=== PATIENT | male | born 1950 | race Caucasian/White ===

== ENCOUNTER 2017-01-22 15:05 | Emergency (ER) | payer OTHER | END 2017-01-22 16:35 | disposition left against medical advice (07) | LOC: ED 15:05 | DX: Z53.9 Procedure and treatment not carried out, unspecified reason (principal) ==

== ENCOUNTER 2017-08-11 13:58 | Emergency (ER) | payer OTHER, MEDICARE ==
[2017-08-11] MEDS ORDERED: Sodium Chloride 0.9% 1000 ML 1,000 ML IV STA (14:08)
--- NOTE | 2017-08-11 14:13 | ERPHSYRPT ---
- History of Present Illness Time Seen by Provider: 08/11/17 14:08 Source: patient, EMS Exam Limitations: no limitations Patient Subjective Stated Complaint: Ems states pt was at [place] [facility] and has had sob with productive cough for the past 3 days. pt states he has been taking antibiotics for pnuemonia. Triage Nursing Assessment: pt dusky, olga, dry. accu check per ems 345. lung sounds wheezes with rhonchi throughout. diminished lung sounds in left upper lobe. pt alert and oriented x3. Physician History: The patient is a 67-year-old male brought in by ambulance from a [place] [facility] that he was visiting for possible admission. He has a recent diagnosis of lung cancer in the left lung and pneumonia. He thinks he was recently on antibiotics. He has difficulty caring for himself. His primary care he is at the [facility]. Pt was seen at [facility] in [place] 2 days ago and had 2.5 L of fluids drained from left lung and given diagnosis of lung cancer. The EMS crew gave him Combivent and albuterol 2. The patient was also given Solu-Medrol 125 mg by IV. PMH of COPD, PTSD, DM, anxiety. Timing/Duration: day(s) (3) Activities at Onset: none Severity of Dyspnea-Max: severe Severity of Dyspnea-Current: severe Possible Cause: chronic episodes Modifying Factors: Improves With: albuterol nebulizer, exertion Associated Symptoms: denies symptoms Allergies/Adverse Reactions: amoxicillin [Amoxicillin] Allergy (Intermediate, Verified 09/27/16 02:01) Swelling Home Medications: Unobtainable [Unobtainable] 08/11/17 [History] Hx Tetanus, Diphtheria Vaccination/Date Given: Yes (up to date) Hx Influenza Vaccination/Date Given: Yes Hx Pneumococcal Vaccination/Date Given: Yes Immunizations Up to Date: Yes - Review of Systems Constitutional: No Fever, No Chills Eyes: No Symptoms Ears, Nose, & Throat: No Symptoms Respiratory: Dyspnea, Dyspnea on Exertion (LOVETT), Wheezing Cardiac: No Chest Pain, No Edema, No Syncope Abdominal/Gastrointestinal: No Abdominal Pain, No Nausea, No Vomiting, No Diarrhea Genitourinary Symptoms: No Dysuria Musculoskeletal: No Back Pain, No Neck Pain Skin: No Rash Neurological: No Dizziness, No Focal Weakness, No Sensory Changes Psychological: No Symptoms Endocrine: No Symptoms Hematologic/Lymphatic: No Symptoms Immunological/Allergic: No Symptoms All Other Systems: Reviewed and Negative - Past Medical History Pertinent Past Medical History: Yes Neurological History: TIA ENT History: No Pertinent History Cardiac History: No Pertinent History Respiratory History: COPD, Emphysema Endocrine Medical History: Diabetes Type II Musculoskeletal History: Other GI Medical History: No Pertinent History, Hernia History: No Pertinent History Psycho-Social History: Other Other Medical History: abscess to buttock. lung cancer - Past Surgical History Past Surgical History: Yes Neuro Surgical History: No Pertinent History Cardiac: No Pertinent History Respiratory: No Pertinent History Gastrointestinal: No Pertinent History, Hernia Repair Genitourinary: No Pertinent History Musculoskeletal: Joint Replacement, Other Other Surgical History: KNEE,TONSILS. Pt states he has had multiple surgeries while in [place] - Social History Smoking Status: Former smoker How long have you smoked: yrs Exposure to second hand smoke: No Drug Use: none Patient Lives Alone: No - Nursing Vital Signs Nursing Vital Signs: Initial Vital Signs Temperature 98.2 F 08/11/17 13:59 Pulse Rate 93 H 08/11/17 13:59 Respiratory Rate 28 H 08/11/17 13:59 Blood Pressure 138/89 08/11/17 13:59 Pain Scale Pain Intensity 0 - Physical Exam General Appearance: moderate distress Eye Exam: PERRL/EOMI Neck Exam: normal inspection, supple Respiratory Exam: diminished breath sounds (on left), wheezing Cardiovascular/Chest Exam: tachycardia Abdominal/Gastrointestinal Exam: soft, No tenderness, No distention, No mass Rectal Exam: not done Extremity Exam: non-tender, normal range of motion, normal inspection, no calf tenderness, no pedal edema Neurologic Exam: alert, oriented x 3, cooperative, roll line operator II-XII nml as tested, sensation nml, No motor deficits Skin Exam: normal color, warm, No dry SpO2 Interpretation: normal Oxygen Delivery: Nasal Cannula - Course EKG Interpreted by Me: RATE, Sinus Rhythm, NORMAL AXIS, NORMAL INTERVALS, NORMAL QRS - Radiology Exams Chest X-ray Interpretation: Reviewed by me, Teleradiologist Report, Other (near complete opacification of left lung per Dr You) Ordered Tests: Active Orders 24 hr Category Date Time Status Wet Char Conveyor Tender STAT Care 08/11/17 14:09 Active EKG-ER Only STAT Care 08/11/17 14:08 Active IV Insertion STAT Care 08/11/17 14:08 Active Oxygen-ED Only NASAL CANNULA 6 lpm Care 08/11/17 14:08 Active 1800 Calorie ADA Diet 08/11/17 Dinner Active CHEST 1 VIEW (PORTABLE) Stat Exams 08/11/17 14:14 Completed ARTERIAL BLOOD GASES Stat Lab 08/11/17 14:25 Completed BLOOD CULTURE Stat Lab 08/11/17 14:40 Received CBC W DIFF Stat Lab 08/11/17 14:25 Completed CMP Stat Lab 08/11/17 14:25 Completed Lactic Acid Stat Lab 08/11/17 14:25 Completed NT PRO BNP Stat Lab 08/11/17 14:25 Completed PROTIME WITH INR Stat Lab 08/11/17 14:25 Completed PTT Stat Lab 08/11/17 14:25 Completed TROPONIN Q3H Lab 08/11/17 14:25 Completed TROPONIN Q3H Lab 08/11/17 17:06 Received TROPONIN Q3H Lab 08/11/17 20:15 Ordered TROPONIN Q3H Lab 08/11/17 23:15 Ordered TROPONIN Q3H Lab 08/12/17 02:15 Ordered UA W/RFX UR CULTURE Stat Lab 08/11/17 17:27 Completed Medication Summary Discontinued Medications Generic Name Dose Route Start Last Admin Trade Name Richardq PRN Reason Stop Dose Admin Sodium Chloride 1,000 mls @ 999 mls/hr 08/11/17 14:08 08/11/17 14:22 Sodium Chloride 0.9% 1000 Ml IV 08/11/17 15:08 999 mls/hr .Q1H1M STA Administration Sodium Chloride Confirm 08/11/17 14:21 Sodium Chloride 0.9% 1000 Ml Administered 08/11/17 14:22 Dose 1,000 mls @ ud .ROUTE .K-MED ONE Lab/Rad Data: Laboratory Result Diagrams 08/11/17 14:25 08/11/17 14:25 Laboratory Results 08/11/17 08/11/17 08/11/17 Range/Units 17:27 14:25 14:25 WBC (4.0-10.5) K/mm3 RBC (4.1-5.6) M/mm3 Hgb (12.5-18.0) gm/dl Hct (42-50) % MCV (78-100) fl MCH (26-32) pg MCHC (32-36) g/dl RDW (11.5-14.0) % Plt Count (150-450) K/mm3 MPV (6-9.5) fl Gran % (36.0-66.0) % Lymphocytes % (24.0-44.0) % Monocytes % (0.0-12.0) % Eosinophils % (0.00-5.0) % Basophils % (0.0-0.4) % Basophils # (0-0.4) INR 1.33 (0.8-3.0) APTT 33.5 (24.1-36.1) SECONDS Puncture Site pCO2 (35-45) mmHg pO2 (75-100) mmHg Base Excess (-2.0-2.0) O2 Saturation (94-100) g/dF ABG pH (7.35-7.45) ABG HCO3 (22-28) ABG O2 Sat (Measured) (95-100) % Bonilla Test A-a Gradient a/A Ratio Hemoglobin Carboxyhemoglobin (0.0-6.9) % THgb Methemoglobin (1.4-1.5) % Potassium (3.5-5.1) Temperature C POC O2 Flow Rate % Sodium (136-145) mEq/L Chloride (98-107) mEq/L Carbon Dioxide (21-32) mEq/L Anion Gap (5-15) MEQ/L BUN (9-20) mg/dL Creatinine (0.55-1.30) mg/dl Estimated GFR ML/MIN Glucose (70-110) MG/DL Lactic Acid (0.4-2.0) Calcium (8.5-10.1) mg/dL Total Bilirubin (0.2-1.0) mg/dL AST (15-37) U/L ALT (12-78) U/L Alkaline Phosphatase (46-116) U/L Troponin I < 0.017 (0.000-0.056) ng/ml NT-Pro-B Natriuret Pep (0-125) pg/ml Serum Total Protein (6.4-8.2) gm/dL Albumin (3.4-5.0) g/dL Ur Collection Type CCMS Urine Color YELLOW (YELLOW) Urine Appearance CLEAR (CLEAR) Urine pH 5.0 (5-6) Ur Specific [place] 1.015 (1.005-1.025) Urine Protein NEGATIVE (Negative) Urine Ketones NEGATIVE (NEGATIVE) Urine Blood NEGATIVE (0-5) Ronen/ul Urine Nitrite NEGATIVE (NEGATIVE) Urine Bilirubin NEGATIVE (NEGATIVE) Urine Urobilinogen NORMAL (0-1) mg/dL Ur Leukocyte Esterase NEGATIVE (NEGATIVE) Urine Culture Reflexed NO (NO) Urine Glucose 1000 (NEGATIVE) mg/dL Specimen Received 08-11-17 [id number] 08/11/17 08/11/17 08/11/17 Range/Units 14:25 14:25 14:25 WBC 15.3 H (4.0-10.5) K/mm3 RBC 3.56 L (4.1-5.6) M/mm3 Hgb 9.7 L (12.5-18.0) gm/dl Hct 32.1 L (42-50) % MCV 90.2 (78-100) fl MCH 27.2 (26-32) pg MCHC 30.2 L (32-36) g/dl RDW 15.0 H (11.5-14.0) % Plt Count 941 H (150-450) K/mm3 MPV 9.2 (6-9.5) fl Gran % 87.3 H (36.0-66.0) % Lymphocytes % 5.1 L (24.0-44.0) % Monocytes % 7.3 (0.0-12.0) % Eosinophils % 0.2 (0.00-5.0) % Basophils % 0.1 (0.0-0.4) % Basophils # 0.02 (0-0.4) INR (0.8-3.0) APTT (24.1-36.1) SECONDS Puncture Site LEFT RADIAL pCO2 50 H (35-45) mmHg pO2 93 (75-100) mmHg Base Excess 7.0 H (-2.0-2.0) O2 Saturation 94.6 (94-100) g/dF ABG pH 7.42 (7.35-7.45) ABG HCO3 32.4 H* (22-28) ABG O2 Sat (Measured) 98.1 (95-100) % Bonilla Test YES A-a Gradient 130 a/A Ratio 0.42 Hemoglobin 9.1 Carboxyhemoglobin 2.7 (0.0-6.9) % THgb Methemoglobin 0.9 L (1.4-1.5) % Potassium 4.3 4.2 (3.5-5.1) Temperature 37.0 C POC O2 Flow Rate 40 % Sodium 139 (136-145) mEq/L Chloride 98 (98-107) mEq/L Carbon Dioxide 33.9 H (21-32) mEq/L Anion Gap 11.5 (5-15) MEQ/L BUN 15 (9-20) mg/dL Creatinine 0.97 (0.55-1.30) mg/dl Estimated GFR > 60 ML/MIN Glucose 333 H (70-110) MG/DL Lactic Acid 1.5 (0.4-2.0) Calcium 9.3 (8.5-10.1) mg/dL Total Bilirubin 0.30 (0.2-1.0) mg/dL AST 11 L (15-37) U/L ALT 14 (12-78) U/L Alkaline Phosphatase 102 (46-116) U/L Troponin I (0.000-0.056) ng/ml NT-Pro-B Natriuret Pep 487 H (0-125) pg/ml Serum Total Protein 7.8 (6.4-8.2) gm/dL Albumin 2.4 L (3.4-5.0) g/dL Ur Collection Type Urine Color (YELLOW) Urine Appearance (CLEAR) Urine pH (5-6) Ur Specific [place] (1.005-1.025) Urine Protein (Negative) Urine Ketones (NEGATIVE) Urine Blood (0-5) Ronen/ul Urine Nitrite (NEGATIVE) Urine Bilirubin (NEGATIVE) Urine Urobilinogen (0-1) mg/dL Ur Leukocyte Esterase (NEGATIVE) Urine Culture Reflexed (NO) Urine Glucose (NEGATIVE) mg/dL Specimen Received - Progress Progress: improved Air Movement: fair Blood Culture(s) Obtained: Yes Antibiotics given: No Discussed with : Other (Dr Veliz at [facility] in [place]) Counseled pt/family regarding: lab results, diagnosis, rad results - Departure Time of Disposition: 16:15 Departure Disposition: Transfer (transfer to [facility] in [place] per DR Veliz) Clinical Impression: Dyspnea, Pleural effusion on left, Lung cancer Condition: Good Critical Care Time: No Referrals: DOCTOR,NO FAMILY [Primary Care Provider] -
[2017-08-11] MEDS ORDERED: Sodium Chloride 0.9% 1000 ML 1,000 ML ONE (14:21)
[2017-08-11 14:33] LABS: A-aADO2 130; ARTERIAL BLD GAS O2 SATURATION 98.1 % (95-100); ARTERIAL BLOOD GAS FIO2 40 %; ARTERIAL BLOOD GAS PO2 93 mmHg (75-100); ARTERIAL BLOOD GAS pH 7.42 (7.35-7.45); Lactic Acid 1.5 (0.4-2.0)
[2017-08-11 14:34] LABS: ALLEN TEST OK? YES
--- NOTE | 2017-08-11 14:36 | XRAY ---
Indication: Cough and short of breath. Comparison: July 19, 2014. Portable chest now demonstrates near-complete opacification of the left lung presumed from large effusion/atelectasis obscuring the cardiac silhouette. Right lung clear. Bony thorax intact.
[2017-08-11 14:52] LABS: BASOPHIL % 0.1 % (0.0-0.4); Eosinophil % 0.2 % (0.00-5.0); Granulocytes % 87.3 % (36.0-66.0); Lymphocytes % 5.1 % (24.0-44.0); Mean Cell Volume 90.2 fl (78-100); Mean Corpuscular Hemoglobin 27.2 pg (26-32); Mean Platelet Volume 9.2 fl (6-9.5); Monocytes % 7.3 % (0.0-12.0); Platelet Count 941 K/mm3 (150-450); Red Blood Count 3.56 M/mm3 (4.1-5.6); White Blood Count 15.3 K/mm3 (4.0-10.5)
[2017-08-11 15:21] LABS: INR 1.33 (0.8-3.0); PROTIME 14.8 SECONDS (8.83-12.87)
[2017-08-11 15:23] LABS: PTT 33.5 SECONDS (24.1-36.1)
[2017-08-11 15:36] LABS: ALBUMIN 2.4 g/dL (3.4-5.0); ALKALINE PHOSPHATASE 102 U/L (46-116); ANION GAP 11.5 MEQ/L (5-15); BLOOD UREA NITROGEN 15 mg/dL (9-20); CHLORIDE 98 mEq/L (98-107); Carbon Dioxide 33.9 mEq/L (21-32); Glucose 333 MG/DL (70-110); Potassium 4.3 mEq/L (3.5-5.1); SGOT/AST 11 U/L (15-37); SGPT/ALT 14 U/L (12-78); SODIUM 139 mEq/L (136-145); Total Protein 7.8 gm/dL (6.4-8.2)
[2017-08-11 17:39] LABS: ADD URINE CULTURE? NO (NO); Bilirubin NEGATIVE (NEGATIVE); Blood NEGATIVE Ery/ul (0-5); COMPLETE URINE MICROSCOPIC? NO; Collection Type CCMS; Glucose 1000 mg/dL (NEGATIVE); Leukocyte Esterase NEGATIVE (NEGATIVE)
[2017-08-11 19:12] VITALS: BP 110/78; PULSE 103; O2SAT 97
== END 2017-08-11 19:00 | disposition short-term general hospital (02) ==
LOC: ED 13:58
DX: R06.00 Dyspnea, unspecified (principal); J90 Pleural effusion, not elsewhere classified; C34.92 Malignant neoplasm of unspecified part of left bronchus or lung
CPT/HCPCS: 36000; 36415; 36600; 71010; 80053; 81002; 82375; 82803; 83605; 83880; 84484; 85025; 85610; 85730; 87040; 93005; 93041; 96360; 99285